=== PATIENT | female | born 1935 | race Caucasian/White ===

== ENCOUNTER 2019-10-25 09:58 | Day surgery (SDC) | payer MEDICARE, BC ==
[~2019-10-25] VITALS: Ht 167.6 cm; Wt 91.0 kg
[2019-10-25] VITALS (9 sets, daily range): BP systolic 102–157; BP diastolic 52–71
[2019-10-25] MEDS ORDERED: normal saline 1000ml 1,000 ML IV SCH ×2 (10:25→13:25)
[2019-10-25 10:34] LABS: BASOPHILS # (AUTO) 0.1 X10'3 (0-0.2); BASOPHILS % (AUTO) 1.3 % (0-1); EOSINOPHILS # (AUTO) 0.3 X10'3 (0-0.9); EOSINOPHILS % (AUTO) 4.5 % (0-6); HEMATOCRIT 42.6 % (35.0-45.0); HEMOGLOBIN 14.2 g/dl (12.0-16.0); LYMPHOCYTES # (AUTO) 2.1 X10'3 (1.1-4.8); LYMPHOCYTES % (AUTO) 36.9 % (21-51); MEAN CORPUSCULAR HEMOGLOBIN 31.2 PG (27.0-31.0); MEAN CORPUSCULAR HGB CONC 33.4 g/dL (33.0-36.5); MEAN CORPUSCULAR VOLUME 93.4 FL (78-98); MEAN PLATELET VOLUME 9.8 FL (7.4-10.4); MONOCYTES # (AUTO) 0.6 X10'3 (0-0.9); MONOCYTES % (AUTO) 10.4 % (2-12); NEUTROPHILS # (AUTO) 2.7 X10'3 (1.8-7.7); NEUTROPHILS % (AUTO) 46.9 % (42-75); PLATELET COUNT 157 X10'3 (140-440); RED BLOOD COUNT 4.56 X10'6 (4.20-5.60); RED CELL DISTRIBUTION WIDTH 13.6 % (11.5-14.5); WHITE BLOOD COUNT 5.7 X10'3 (4.5-11.0)
[2019-10-25 10:50] LABS: ALBUMIN 3.8 G/DL (3.4-5.0); ANION GAP 11 (8-16); BLOOD UREA NITROGEN 21 MG/DL (7-18); BUN/CREATININE RATIO 20.2 (6.6-38.0); CALCIUM 9.4 MG/DL (8.5-10.1); CHLORIDE 109 MMOL/L (99-107); CREATININE 1.04 MG/DL (0.40-0.90); GLUCOSE 103 MG/DL (70-104); MAGNESIUM 1.9 MG/DL (1.5-2.4); POTASSIUM 4.2 MMOL/L (3.5-5.1); SODIUM 144 MMOL/L (135-145); eGFR 51 ML/MIN
[2019-10-25] MEDS ORDERED: OMEG-79 PO (11:00)
[2019-10-25] MEDS ORDERED: CALC600T82 PO (11:00)
[2019-10-25] MEDS ORDERED: METO25TA6 PO (11:00)
[2019-10-25] MEDS ORDERED: WARF5TAB PO (11:00)
[2019-10-25] MEDS ORDERED: ACET-1025 PO (11:00)
[2019-10-25] MEDS ORDERED: WARF10TA50 PO (11:00)
[2019-10-25] MEDS ORDERED: midazolam 2 mg/2 ml injection ONE (11:30)
[2019-10-25] MEDS ORDERED: fentaNYL/PF 50MCG/1 ML 2ML syringe ONE (11:30)
[2019-10-25] MEDS ORDERED: ceFAZolin 1000mg inj ONE (11:30)
[2019-10-25] MEDS ORDERED: LIDOcaine 1% W/epiNEPHrine 1:100,000 20ml vial ONE (11:30)
[2019-10-25] MEDS ORDERED: cefazolin/dext.iso 2gm/100ml 100 ML IV ONE (11:50)
[2019-10-25] MEDS ORDERED: vancomycin/NS 1 GM ADD-VANTAGE 250 ML IV ONE (11:50)
== END 2019-10-25 15:35 | disposition home or self-care (01) ==
LOC: SSTAY O 09:58
PROVIDERS: ATTEND Internal Medicine Cardiovascular Disease
DX: I49.5 Sick sinus syndrome (principal); I48.20 Chronic atrial fibrillation, unspecified; I36.1 Nonrheumatic tricuspid (valve) insufficiency; E78.5 Hyperlipidemia, unspecified; I10 Essential (primary) hypertension; Z86.711 Personal history of pulmonary embolism; Z90.710 Acquired absence of both cervix and uterus; Z90.49 Acquired absence of other specified parts of digestive tract; Z98.890 Other specified postprocedural states; Z83.6 Family history of other diseases of the respiratory system; Z80.9 Family history of malignant neoplasm, unspecified; Z88.6 Allergy status to analgesic agent; Z88.8 Allergy status to other drugs, medicaments and biological substances; Z79.899 Other long term (current) drug therapy
CPT/HCPCS: 33207; 36415; 71045; 80048; 83735; 85025; 85610; 93005; 99152; 99153; C1769; C1786; C1894; C1898; J0690; J2250; J3010; A4565; A4620